=== PATIENT | female | born 1945 | race Caucasian/White ===

== ENCOUNTER 2023-12-21 20:27 | Emergency (ER) | payer MEDICARE, OTHER ==
[2023-12-21 20:33] VITALS: BP 171/89; PULSE 76
[2023-12-21 21:00] LABS: BASOPHILS ABSOLUTE AUTO 0.04 K/uL (0.00-0.20); BASOPHILS PERCENT AUTO 0.6 % (0.0-2.0); EOSINOPHILS ABSOLUTE AUTO 0.11 K/uL (0.00-0.50); EOSINOPHILS PERCENT AUTO 1.7 % (0.0-5.0); HEMOGLOBIN 14.1 g/dL (11.7-15.5); LYMPHOCYTES ABSOLUTE AUTO 2.47 K/uL (0.50-3.50); LYMPHOCYTES PERCENT AUTO 38.4 % (10.0-50.0); MEAN CORPUSCULAR HEMOGLOBIN 30.7 pg (28.2-33.3); MEAN CORPUSCULAR VOLUME 95.9 fL (84.0-98.0); MONOCYTES ABSOLUTE AUTO 0.69 K/uL (0.00-1.00); MONOCYTES PERCENT AUTO 10.7 % (2.0-14.0); NEUTROPHILS ABSOLUTE AUTO 3.13 K/uL (1.40-7.00); NEUTROPHILS PERCENT AUTO 48.6 % (45.0-80.0); PLATELET COUNT,PLT 380 K/uL (150-350); RED BLOOD CELL COUNT 4.59 M/uL (3.77-5.09); RED CELL DISTRIBUTION WIDTH 12.2 % (11.2-14.1); WHITE BLOOD CELL COUNT,WBC 6.4 K/uL (4.0-10.2)
[2023-12-21 21:25] LABS: ALANINE AMINOTRANSFERASE,ALT 21 U/L (12-78); ALBUMIN 4.1 g/dL (3.4-5.0); ALKALINE PHOSPHATASE 70 IU/L (46-116); ANION GAP 10.3 meq/L (7-15); ASPARTATE AMNIOTRANSFERASE,AST 18 U/L (15-37); BILIRUBIN TOTAL 0.3 mg/dL (0.2-1.0); BLOOD UREA NITROGEN,BUN 19 mg/dL (7-18); CALCIUM 9.8 mg/dL (8.5-10.1); CARBON DIOXIDE,CO2 26.7 mmol/L (21.0-32.0); CHLORIDE,CL 106 mmol/L (98-107); CREATININE 0.97 mg/dL (0.51-1.17); ESTIMATED GFR 60 mL/min (>=60); GLUCOSE RANDOM 113 mg/dL (70-99); POTASSIUM,K 3.8 mmol/L (3.5-5.1); PRO B-TYPE NATRIUR PEPT,BNPPRO 29 pg/mL (0-125); SODIUM,NA 143 mmol/L (136-145)
== END 2023-12-21 22:07 | disposition home or self-care (01) ==
LOC: LL.ED 20:27
DX: I10 Essential (primary) hypertension (principal); E78.00 Pure hypercholesterolemia, unspecified; Z88.0 Allergy status to penicillin; Z88.1 Allergy status to other antibiotic agents; Z88.5 Allergy status to narcotic agent; Z88.2 Allergy status to sulfonamides; Z79.51 Long term (current) use of inhaled steroids; Z79.899 Other long term (current) drug therapy; Z90.710 Acquired absence of both cervix and uterus; Z79.82 Long term (current) use of aspirin
CPT/HCPCS: 36415; 80053; 83880; 84484; 85025; 93005; 99283; 99284